=== PATIENT | male | born 1985 | race Caucasian/White ===

== ENCOUNTER 2024-02-25 14:20 | Emergency (ER) | payer OTHER ==
[2024-02-25 14:32] VITALS: BP 130/82; PULSE 103; RESP 17; TEMP 99.3; BMI 25.8
[2024-02-25 15:49] LABS: BASO % 0.5 % (0-2.0); EOS % 7.5 % (0-4.5); HEMATOCRIT 45.4 % (35.4-49); HEMOGLOBIN 15.2 GM/dL (11.7-16.9); LYMPH % 16.2 % (8-40); MCH 28.7 pg (25.7-33.7); MCHC 33.5 g/dl (32.0-35.9); MEAN CELL VOLUME 85.6 fl (80-96); MEAN PLT VOLUME 7.5 fl (7.5-11.1); MONO % 7.3 % (3.8-10.2); NEUT % 68.5 % (42.8-82.8); PLATELET COUNT 254 10^3/uL (134-434); RBC 5.31 M/mm3 (4.00-5.60); RDW 13.9 % (11.9-15.9)
[2024-02-25 16:02] LABS: ACTIVATED PTT 31.2 SECONDS (25.2-36.5); INR 1.12 (0.83-1.09)
[2024-02-25 17:39] LABS: POTASSIUM 3.7 mmol/L (3.5-5.1)
[2024-02-25 17:41] LABS: CALCIUM 8.5 mg/dL (8.5-10.1)
[2024-02-25 17:42] LABS: ALBUMIN 3.4 g/dl (3.4-5.0); BLOOD UREA NITROGEN 8.8 mg/dL (7-18)
[2024-02-25 17:45] LABS: CREATININE 0.8 mg/dL (0.55-1.3)
[2024-02-25 17:47] LABS: BILIRUBIN,TOTAL 0.5 mg/dL (0.2-1); TOT PROT 7.4 g/dl (6.4-8.2)
[2024-02-25] MEDS: LACTATED RINGERS SOLUTION 1000 ML INFUS.BAG IV ONE (17:58)
[2024-02-25] MEDS ORDERED: AMPICILLIN NA/SULBACTAM NA 3 GM/100 ML BAG IVPB ONE (19:07)
[2024-02-25] MEDS: AMPICILLIN NA/SULBACTAM NA 3 GM in DEXTROSE 5%-WATER 100 ML IVPB ONE (19:21)
== END 2024-02-25 19:54 | disposition home or self-care (01) ==
LOC: JER 14:20
DX: R19.7 Diarrhea, unspecified (principal); K59.00 Constipation, unspecified; R10.9 Unspecified abdominal pain; K92.1 Melena; K52.9 Noninfective gastroenteritis and colitis, unspecified
CPT/HCPCS: 36415; 74177-TC; 80053; 82272; 85025; 85610; 85730; 86850; 86900; 86901; 99285-25; Q9967